=== PATIENT | male | born 1960 | race Caucasian/White ===

== ENCOUNTER 2018-10-23 10:07 | Day surgery (SDC) | payer OTHER ==
[2018-10-20 12:50] VITALS: BMI 26.2
[2018-10-23 10:39] VITALS: TEMP 98.1
[2018-10-23] MEDS ORDERED: MIDAZOLAM HCL 2 MG/2 ML SINGLE DOSE VIAL ONE ×2 (11:39)
[2018-10-23] MEDS ORDERED: DEXAMETHASONE SOD PHOSPHATE 4 MG/1 ML VIAL ONE (12:02)
--- NOTE | 2018-10-23 12:39 | OP ---
Operative Note - Note: Operative Date: 10/23/18 Pre-Operative Diagnosis: Right renal stone Operation: Right ESWL Findings: 20 mm Right renal pelvis area Post-Operative Diagnosis: Same as Pre-op Surgeon: Guzman Elkins Anesthesia: Fractional Estimated Blood Loss (mls): 0 Operative Report Dictated: Yes
--- NOTE | 2018-10-23 12:52 | OP ---
Operative Note - Note: Operative Date: 10/23/18 Pre-Operative Diagnosis: Right renal stone Operation: Right ESWL Findings: 20 mm Right renal pelvic stone Post-Operative Diagnosis: Same as Pre-op Surgeon: Guzman Elkins Anesthesia: Fractional Estimated Blood Loss (mls): 0 Operative Report Dictated: Yes
[2018-10-23 13:30] VITALS: BP 122/75; PULSE 75
--- NOTE | 2018-10-24 07:43 | OP ---
DATE OF OPERATION: 10/23/2018 PREOPERATIVE DIAGNOSIS: Right renal stone. POSTOPERATIVE DIAGNOSIS: Right renal stone. PROCEDURE: Right extracorporeal shock wave lithotripsy. ATTENDING: Tania Valiente MD ANESTHESIA: Fractional. OPERATION FOLLOWS: The patient was brought in the operating room, placed in supine position on the operating room table. Ultrasonography and fluoroscopy were performed. A 2-cm stone was noted in the right renal pelvis. Patient understood all risks and benefits involved with lithotripsy with a stone of this size and was aware of the risk of having a stone obstruction. Patient understood these risks and benefits and underwent the procedure. Once the stone was identified, anesthesia and preoperative antibiotics were administered. Shock wave lithotripsy was then performed, 3000 impulses at 20 joules of power were administered to the stone with excellent fragmentation noted under real time ultrasonography and fluoroscopy. No complications were noted. The disposition of the patient was to the recovery room. TANIA VALIENTE M.D. [id number]
== END 2018-10-23 14:12 | disposition home or self-care (01) ==
LOC: JASU-SURG 10:07
PROVIDERS: ATTEND Urology
PROC: 0TF3XZZ Fragmentation in Right Kidney Pelvis, External Approach (ICD-10-PCS; principal; 2018-10-23 11:00)
DX: N20.0 Calculus of kidney (principal)

== ENCOUNTER 2018-10-27 13:34 | Inpatient (IN) | payer OTHER ==
[2018-10-27] MEDS ORDERED: KETOROLAC TROMETHAMINE 30 MG/1 ML VIAL IVPUSH ONE (13:44)
--- NOTE | 2018-10-27 13:46 | PDOC ---
Rapid Medical Evaluation Time Seen by Provider: 10/27/18 13:41 Medical Evaluation: Allergies Allergy/AdvReac Type Severity Reaction Status Date / Time No Known Allergies Allergy Verified 10/20/18 12:50 10/27/18 13:42 I have performed a brief in-person evaluation of this patient. The patient presents with a chief complaint of: s/p lithotripsy 4 days ago, has new known obstructive stone Pertinent physical exam findings: R CVAT I have ordered the following:CT scan labs, urine toradol, valle The patient will proceed to the ED for further evaluation. 10/27/18 13:45 Discharge Disposition - Diagnosis Flank pain - Referrals - Patient Instructions - Post Discharge Activity
[2018-10-27 13:47] VITALS: BMI 26.2
[2018-10-27 14:24] LABS: BASO % 0.8 % (0-2.0); EOS % 2.1 % (0-4.5); HEMATOCRIT 41.6 % (35.4-49); HEMOGLOBIN 14.5 GM/dL (11.7-16.9); LYMPH % 23.7 % (8-40); MCHC 34.8 g/dl (32.0-35.9); MEAN CELL VOLUME 86.3 fl (80-96); MEAN PLT VOLUME 7.9 fl (7.5-11.1); MONO % 6.5 % (3.8-10.2); NEUT % 66.9 % (42.8-82.8); PLATELET COUNT 299 K/MM3 (134-434); RBC 4.82 M/mm3 (4.00-5.60); RDW 13.4 % (11.9-15.9); WHITE BLOOD COUNT 11.9 K/mm3 (4.0-10.0)
[2018-10-27] MEDS ORDERED: KETOROLAC TROMETHAMINE 30 MG/1 ML VIAL ONE (14:40)
[2018-10-27 14:57] LABS: ALK PHOS 96 U/L (45-117); ANION GAP 6 MMOL/L (8-16); BILIRUBIN,TOTAL 0.4 mg/dL (0.2-1); BLOOD UREA NITROGEN 16 mg/dL (7-18); CALCIUM 9.3 mg/dL (8.5-10.1); CHLORIDE 102 mmol/L (98-107); CO2 25 mmol/L (21-32); CREATININE 1.9 mg/dL (0.55-1.3); GLUCOSE,RANDOM 97 mg/dL (74-106); POTASSIUM 4.2 mmol/L (3.5-5.1); SGOT/AST 12 U/L (15-37); SGPT/ALT 16 U/L (13-61); SODIUM 132 mmol/L (136-145); TOT PROT 7.8 g/dl (6.4-8.2)
[2018-10-27] MEDS ORDERED: SODIUM CHLORIDE 1,000 ML IV STA (15:41)
--- NOTE | 2018-10-27 16:11 | PDOC ---
History of Present Illness - General Chief Complaint: Pain Stated Complaint: FEVER AFTER PROCEDURE Time Seen by Provider: 10/27/18 13:41 History Source: Patient - History of Present Illness Timing/Duration: reports: constant, getting worse Pain Radiation: reports: flank Past History - Past Medical History Allergies/Adverse Reactions: Allergies Allergy/AdvReac Type Severity Reaction Status Date / Time No Known Allergies Allergy Verified 10/20/18 12:50 Home Medications: Ambulatory Orders Acetaminophen [Tylenol -] 500 mg PO Q6H PRN 10/20/18 Anemia: No Asthma: No Cancer: No Cardiac Disorders: No CVA: No COPD: No CHF: No Dementia: No Diabetes: No GI Disorders: No Disorders: No HTN: No Hypercholesterolemia: No Liver Disease: No Seizures: No Thyroid Disease: No - Surgical History Appendectomy: Yes - Suicide/Smoking/Psychosocial Hx Smoking History: Current every day smoker Number of Cigarettes Smoked Daily: 10 Information on smoking cessation initiated: No 'Breaking Loose' booklet given: 10/23/18 Hx Alcohol Use: No Drug/Substance Use Hx: No Substance Use Type: None Review of Systems - Review of Systems Constitutional: No: Chills, Fever ABD/GI: No: Nausea, Vomiting : Yes: Flank Pain. No: Hematuria *Physical Exam - Vital Signs Last Vital Signs Temp Pulse Resp BP Pulse Ox 98.1 F 107 H 20 116/87 100 10/27/18 13:43 10/27/18 13:43 10/27/18 13:43 10/27/18 13:43 10/27/18 13:43 - Physical Exam General Appearance: Yes: Appropriately Dressed, Mild Distress HEENT: positive: Normal Voice Neck: positive: Supple Respiratory/Chest: negative: Respiratory Distress Gastrointestinal/Abdominal: positive: Soft. negative: Tender Musculoskeletal: positive: CVA Tenderness (R) Integumentary: positive: Dry, Warm Neurologic: positive: Fully Oriented, Alert, Normal Mood/Affect Moderate Sedation - Procedure Monitoring Vital Signs: Procedure Monitoring Vital Signs Temperature 98.1 F 10/27/18 13:43 Pulse Rate 107 H 10/27/18 13:43 Respiratory Rate 20 10/27/18 13:43 Blood Pressure 116/87 10/27/18 13:43 O2 Sat by Pulse Oximetry (%) 100 10/27/18 13:43 ED Treatment Course - LABORATORY CBC & Chemistry Diagram: 10/27/18 14:07 10/27/18 14:06 - ADDITIONAL ORDERS Additional order review: Laboratory Results 10/27/18 14:06 Sodium 132 L Potassium 4.2 Chloride 102 Carbon Dioxide 25 Anion Gap 6 L BUN 16 Creatinine 1.9 H Creat Clearance w eGFR 36.85 Random Glucose 97 Calcium 9.3 Total Bilirubin 0.4 AST 12 L ALT 16 Alkaline Phosphatase 96 Total Protein 7.8 Albumin 4.0 10/27/18 14:07 RBC 4.82 MCV 86.3 MCHC 34.8 RDW 13.4 MPV 7.9 Neutrophils % 66.9 Lymphocytes % 23.7 Monocytes % 6.5 Eosinophils % 2.1 Basophils % 0.8 - Medications Given in the ED: ED Medications Discontinued Medications Generic Name Dose Route Start Last Admin Trade Name Freq PRN Reason Stop Dose Admin Ketorolac Tromethamine 30 mg 10/27/18 13:44 10/27/18 14:43 Toradol Injection - IVPUSH 10/27/18 13:45 30 mg ONCE ONE Administration Medical Decision Making - Medical Decision Making 10/27/18 15:46 68-year-old male, history of kidney stones, s/p R ESWL on 10/23/2018 who presented to his urologist with continued right flank pain and had CT done today showed multiple R ureteral stone with moderate hydronephrosis. Patient was sent to ED for admission for stent placement as per discussion with Dr. Bhaskar Espinosa via phone. Patient denies any nausea, vomiting, fever or chills at this time See exam Sent in for stent placement 2/2 R renal stone/hydro -pain control -preop labs -CT done earlier -OR today -admit 10/27/18 17:21 *DC/Admit/Observation/Transfer Diagnosis at time of Disposition: Flank pain - Discharge Dispostion Condition at time of disposition: Stable Decision to Admit order: Yes - Referrals Referrals: Jorge Abdalla MD [Primary Care Provider] - - Patient Instructions - Post Discharge Activity
[2018-10-27] MEDS ORDERED: MORPHINE SULFATE 2 MG/ML VIAL IM PRN (17:28)
[2018-10-27] MEDS ORDERED: SODIUM CHLORIDE 1,000 ML IV SCH (17:30)
--- NOTE | 2018-10-27 17:36 | HP ---
CHIEF COMPLAINT: sent by urologist for stent placement PCP:dr Abdalla HISTORY OF PRESENT ILLNESS: 8-year-old male, history of kidney stones, s/p R lithotrypsy on 10/23/[address] Gonsales with continued right flank pain and had CT done today showed multiple R ureteral stone with moderate hydronephrosis. Patient was sent to Er for admission for stent placement . Patient denies any nausea, vomiting, fever or chills at this time ER course was notable for: (1)h/o lithorypsy (2)h/o stones (3)h/o hydro on ct abd and pelvix Recent Travel:non PAST MEDICAL HISTORY:renal stones PAST SURGICAL HISTORY:renal stones removal Social History: Smoking:occasional Alcohol:none Drugs: none Family History: Allergies No Known Allergies Allergy (Verified 10/20/18 12:50) HOME MEDICATIONS: Home Medications Medication Instructions Recorded Acetaminophen [Tylenol -] 500 mg PO Q6H PRN 10/20/18 REVIEW OF SYSTEMS CONSTITUTIONAL: Absent: fever, chills, diaphoresis, generalized weakness, malaise, loss of appetite, weight change HEENT: Absent: rhinorrhea, nasal congestion, throat pain, throat swelling, difficulty swallowing, mouth swelling, ear pain, eye pain, visual changes CARDIOVASCULAR: Absent: chest pain, syncope, palpitations, irregular heart rate, lightheadedness , peripheral edema RESPIRATORY: Absent: cough, shortness of breath, dyspnea with exertion, orthopnea, wheezing, stridor, hemoptysis GASTROINTESTINAL: Absent: abdominal pain, abdominal distension, nausea, vomiting, diarrhea, constipation, melena, hematochezia GENITOURINARY: Absent: dysuria, frequency, urgency, hesitancy, hematuria, flank pain, genital pain MUSCULOSKELETAL: Absent: myalgia, arthralgia, joint swelling, back pain, neck pain SKIN: Absent: rash, itching, pallor HEMATOLOGIC/IMMUNOLOGIC: Absent: easy bleeding, easy bruising, lymphadenopathy, frequent infections ENDOCRINE: Absent: unexplained weight gain, unexplained weight loss, heat intolerance, cold intolerance NEUROLOGIC: Absent: headache, focal weakness or paresthesias, dizziness, unsteady gait, seizure, mental status changes, bladder or bowel incontinence PSYCHIATRIC: Absent: anxiety, depression, suicidal or homicidal ideation, hallucinations. PHYSICAL EXAMINATION Vital Signs - 24 hr 10/27/18 13:43 Temperature 98.1 F Pulse Rate 107 H Respiratory 20 Rate Blood Pressure 116/87 O2 Sat by Pulse 100 Oximetry (%) GENERAL: Awake, alert, and fully oriented, in no acute distress. HEAD: Normal with no signs of trauma. EYES: Pupils equal, round and reactive to light, extraocular movements intact, sclera anicteric, conjunctiva clear. No lid lag. EARS, NOSE, THROAT: Ears normal, nares patent, oropharynx clear without exudates. Moist mucous membranes. NECK: Normal range of motion, supple without lymphadenopathy, JVD, or masses. LUNGS: Breath sounds equal, clear to auscultation bilaterally. No wheezes, and no crackles. No accessory muscle use. HEART: Regular rate and rhythm, normal S1 and S2 without murmur, rub or gallop. ABDOMEN: Soft, nontender, not distended, normoactive bowel sounds, no guarding, no rebound, no masses. No hepatomegaly or splenomegaly. MUSCULOSKELETAL: Normal range of motion at all joints. No bony deformities or tenderness. No CVA tenderness. UPPER EXTREMITIES: 2+ pulses, warm, well-perfused. No cyanosis. No clubbing. No peripheral edema. LOWER EXTREMITIES: 2+ pulses, warm, well-perfused. No calf tenderness. No peripheral edema. NEUROLOGICAL: Cranial nerves II-XII intact. Normal speech. Normal gait. PSYCHIATRIC: Cooperative. Good eye contact. Appropriate mood and affect. SKIN: Warm, dry, normal turgor, no rashes or lesions noted, normal capillary refill. Laboratory Results - last 24 hr 10/27/18 10/27/18 14:06 14:07 WBC 11.9 H RBC 4.82 Hgb 14.5 Hct 41.6 MCV 86.3 MCH 30.0 MCHC 34.8 RDW 13.4 Plt Count 299 MPV 7.9 Absolute Neuts (auto) 7.9 Neutrophils % 66.9 Lymphocytes % 23.7 Monocytes % 6.5 Eosinophils % 2.1 Basophils % 0.8 Nucleated RBC % 0 Sodium 132 L Potassium 4.2 Chloride 102 Carbon Dioxide 25 Anion Gap 6 L BUN 16 Creatinine 1.9 H Creat Clearance w eGFR 36.85 Random Glucose 97 Calcium 9.3 Total Bilirubin 0.4 AST 12 L ALT 16 Alkaline Phosphatase 96 Total Protein 7.8 Albumin 4.0 ASSESSMENT/PLAN: 8-year-old male, history of kidney stones, s/p R ESWL on 10/23/2018 who presented to his urologist with continued right flank pain and had CT done today showed multiple R ureteral stone with moderate hydronephrosis. Patient is admission for stent placement will make him npo start him on iv normal saline as per discussion of er pa with urologist that patient doenst need the antibiotics stent placement pain medications as needed for pain due renal stones no need for dvt prophylaxis bc he is ambulatory. Visit type - Emergency Visit Emergency Visit: Yes Care time: The patient presented to the Emergency Department on the above date and was hospitalized for further evaluation of their emergent condition. - New Patient This patient is new to me today: Yes Date on this admission: 10/27/18 - Critical Care Critical Care patient: No
[2018-10-27 18:40] LABS: URINE APPEARANCE TURBID; URINE BILIRUBIN NEGATIVE (<2.0 mg/dL); URINE COLOR AMBER; URINE GLUCOSE (UA) NEGATIVE (NEGATIVE); URINE KETONE NEGATIVE (NEGATIVE); URINE LEUK ESTERASE 1+ (NEGATIVE); URINE NITRITE NEGATIVE (NEGATIVE); URINE PROTEIN 3+ (NEGATIVE); URINE UROBILINOGEN NEGATIVE mg/dL (0.2-1.0)
[2018-10-27 18:46] LABS: EPI CELLS RARE /HPF (FEW); URINE BACTERIA RARE /hpf (NONE SEEN); URINE MUCUS FEW; YEAST FEW
[2018-10-27 18:50] LABS: INR 1.05 (0.83-1.09); PROTHROMBIN TIME (PATIENT) 12.4 SEC (9.7-13.0)
[2018-10-27] MEDS ORDERED: PROPOFOL 20 ML ONE ×2 (19:03→19:11)
--- NOTE | 2018-10-27 19:06 | CON.GU ---
Consult Consult Specialty:: urology Referred by:: Ricky Reason for Consultation:: right renal colic/hydronephrosis/gross hematuria - History of Present Illness Chief Complaint: right ureteral obstruction History of Present Illness: Patient is a 58 year old male s/p eswl of right 2 cm renal pelvic stone. Patient developed nausea, vomiting and chills. Patient was placed on oral antibiotics yesterday and the pain and nausea worsened with new onset gross hematuria. Patient is in distress - History Source History Provided By: Patient Limitations to Obtaining History: No Limitations - Alcohol/Substance Use Hx Alcohol Use: No - Smoking History Smoking history: Current every day smoker Aproximately how many cigarettes per day: 10 Home Medications - Allergies Allergies/Adverse Reactions: Allergies Allergy/AdvReac Type Severity Reaction Status Date / Time No Known Allergies Allergy Verified 10/20/18 12:50 - Home Medications Home Medications: Ambulatory Orders Acetaminophen [Tylenol -] 500 mg PO Q6H PRN 10/20/18 Physical Exam- Vital Signs: Vital Signs Temperature 98.1 F 10/27/18 13:43 Pulse Rate 95 H 10/27/18 18:30 Respiratory Rate 18 10/27/18 18:30 Blood Pressure 110/79 10/27/18 18:30 O2 Sat by Pulse Oximetry (%) 99 10/27/18 18:30 Constitutional: Yes: Anxious, Moderate Distress Eyes: Yes: WNL, Conjunctiva Clear, EOM Intact HENT: Yes: WNL, Atraumatic, Normocephalic Neck: Yes: WNL, Supple, Trachea Midline Cardiovascular: Yes: WNL, Regular Rate and Rhythm Respiratory: Yes: WNL, Regular, CTA Bilaterally Gastrointestinal: Yes: Hypoactive Bowel Sounds Renal/: Yes: CVA Tenderness - Right Kidneys: Yes: FLank Pain Right Pelvis: Yes: Bladder Non Palpable Testicles: Yes: WNL Scrotum: Yes: WNL Penis: Yes: WNL Prostate Exam: Yes: Asymmetrical Extremities: Yes: WNL Integumentary: Yes: WNL Labs: CBC, BMP 10/27/18 14:07 10/27/18 14:06 Imaging - Results Cat Scan: Report Reviewed Assessment/Plan imp uti acute renal insufficiency gross hematuria right hydronephrosis with multiple right ureteral stones plan patient taken to OR with uti/acute renal injury secondary to high grade ureteral obstruction
[2018-10-27] MEDS ORDERED: DEXAMETHASONE SOD PHOSPHATE 4 MG/1 ML VIAL ONE (19:28)
--- NOTE | 2018-10-27 20:06 | OP ---
Operative Note - Note: Operative Date: 10/27/18 Pre-Operative Diagnosis: acute renal injury/right hydronephrosis with renal and ureteral stones/gross hematuria/renal colic Operation: cystoscopy/right retrograde pyelogram/right ureteroscopic laser lithotripsy/right ureteral stone basketing/right ureteral stent placement Findings: multiple stones obstructing right ureter with hyronephrosis Post-Operative Diagnosis: Same as Pre-op Surgeon: Guzman Elkins Anesthesia: General Specimens Removed: ureteral stones Drains & Tubes with Location: 02/21 right ureteral stent
[2018-10-27] MEDS ORDERED: ONDANSETRON 4 MG/2 ML VIAL IVPUSH PRN (20:27)
[2018-10-27] MEDS ORDERED: ACETAMINOPHEN 325 MG TABLET (FP) PO PRN (20:27)
[2018-10-27] MEDS: LACTATED RINGERS SOLUTION 1,000 ML IV SCH (21:53)
[2018-10-28] MEDS: oxyCODONE HCL 5 MG TABLET PO PRN ×2 (06:35→21:59)
[2018-10-28 08:52] LABS: BASO % 0.1 % (0-2.0); EOS % 0.1 % (0-4.5); HEMATOCRIT 35.3 % (35.4-49); HEMOGLOBIN 12.3 GM/dL (11.7-16.9); LYMPH % 15.7 % (8-40); MCH 29.8 pg (25.7-33.7); MCHC 34.9 g/dl (32.0-35.9); MEAN CELL VOLUME 85.2 fl (80-96); MEAN PLT VOLUME 7.9 fl (7.5-11.1); MONO % 3.8 % (3.8-10.2); NEUT % 80.3 % (42.8-82.8); PLATELET COUNT 260 K/MM3 (134-434); RBC 4.15 M/mm3 (4.00-5.60); RDW 13.5 % (11.9-15.9); WHITE BLOOD COUNT 8.3 K/mm3 (4.0-10.0)
--- NOTE | 2018-10-28 09:07 | PN ---
Progress Note, Physician Chief Complaint: AWAKE ALERT EVENTS REVIEWED - Current Medication List Current Medications: Active Medications Acetaminophen (Tylenol -) 650 mg PO Q4H PRN PRN Reason: Pain-PACU ORDER X 2 DOSES ONLY Last Admin: 10/28/18 06:35 Dose: 650 mg Fentanyl (Sublimaze Injection -) 50 mcg IVPUSH [id number] PRN PRN Reason: PAIN-PACU ORDER X 4 DOSES ONLY Last Admin: 10/27/18 20:40 Dose: 50 mcg Lactated Ringer's (Lactated Ringers Solution) 1,000 mls @ 75 mls/hr IV ASDIR [facility] Last Admin: 10/27/18 21:53 Dose: Not Given Levofloxacin (Levaquin -) 500 mg PO DAILY@0600 [facility] Stop: 10/29/18 06:01 Last Admin: 10/28/18 06:34 Dose: 500 mg Morphine Sulfate (Morphine Injection -) 4 mg IVPUSH Q6H PRN PRN Reason: PAIN LEVEL 7 - 10 Ondansetron HCl (Zofran Injection) 4 mg IVPUSH Q6H PRN PRN Reason: NAUSEA AND/OR VOMITING Oxycodone HCl (Roxicodone -) 5 mg PO Q4H PRN PRN Reason: PAIN LEVEL 1-5 Last Admin: 10/28/18 06:35 Dose: 5 mg - Objective Vital Signs: Vital Signs Temperature 97.7 F 10/28/18 08:03 Pulse Rate 82 10/28/18 08:03 Respiratory Rate 20 10/28/18 08:03 Blood Pressure 126/70 10/28/18 08:03 O2 Sat by Pulse Oximetry (%) 96 10/27/18 21:10 Constitutional: Yes: Moderate Distress Eyes: Yes: WNL HENT: Yes: WNL Neck: Yes: WNL Cardiovascular: Yes: Regular Rate and Rhythm Respiratory: Yes: WNL Gastrointestinal: Yes: Tenderness Genitourinary: Yes: Other Musculoskeletal: Yes: Muscle Weakness Edema: No Peripheral Pulses WNL: Yes Integumentary: Yes: WNL Wound/Incision: Yes: Clean/Dry Neurological: Yes: WNL ...Motor Strength: WNL Psychiatric: Yes: WNL Labs: CBC, BMP 10/28/18 07:00 INR, PTT INR 1.05 (0.83-1.09) 10/27/18 18:19 Problem List - Problems (1) Renal colic, bilateral Code(s): N23 - UNSPECIFIED RENAL COLIC (2) Hematuria Code(s): R31.9 - HEMATURIA, UNSPECIFIED (3) UTI (urinary tract infection) Code(s): N39.0 - URINARY TRACT INFECTION, SITE NOT SPECIFIED (4) Flank pain Code(s): R10.9 - UNSPECIFIED ABDOMINAL PAIN Assessment/Plan IVF IV ABX CONSULT PAIN CONTROL MONITOR RENAL FUNCTION
[2018-10-28] MEDS: LACTATED RINGERS SOLUTION 1,000 ML IV SCH ×2 (09:32→21:59)
[2018-10-28 09:42] LABS: ANION GAP 7 MMOL/L (8-16); BLOOD UREA NITROGEN 18 mg/dL (7-18); CALCIUM 8.9 mg/dL (8.5-10.1); CHLORIDE 104 mmol/L (98-107); CO2 24 mmol/L (21-32); CREATININE 1.6 mg/dL (0.55-1.3); GLUCOSE,RANDOM 114 mg/dL (74-106); POTASSIUM 4.8 mmol/L (3.5-5.1); SODIUM 136 mmol/L (136-145)
--- NOTE | 2018-10-28 09:46 | OP ---
DATE OF OPERATION: 10/27/2018 PREOPERATIVE DIAGNOSIS: Acute renal injury with right hydronephrosis secondary to renal and ureteral stones with severe renal colic. POSTOPERATIVE DIAGNOSIS: Acute renal injury with right hydronephrosis secondary to renal and ureteral stones with severe renal colic. PROCEDURE: Cystoscopy, right retrograde pyelogram, right ureteroscopic laser lithotripsy, right ureteral stone basketing, and right ureteral stent placed. SURGEON: Tania Valiente MD ANESTHESIA: General. DESCRIPTION OF PROCEDURE: The patient is status post a right extracorporeal shock-wave lithotripsy of a 2-cm+ right renal pelvis stone. The patient presented with acute renal insufficiency indicative of acute kidney injury. In addition, the patient has a high-grade hydronephrosis with multiple stones obstructing the right kidney. The patient is in severe colic and in distress. The patient was taken emergently to the operating room to have a stent placed. It must be also noted that the patient has a nitrite-positive urine. The patient was brought in the operating room and placed in a supine position on the operating room table. Anesthesia was administered as well as Levaquin preoperatively. The patient was then placed in a dorsal lithotomy position and prepped and draped in a usual sterile manner. Cystoscopy is performed. No evidence of stones or neoplasm noted within the bladder. At this point, a retrograde pyelogram showed a large stone burden within the right ureter. At this point, a wire was passed proximally into the kidney. Ureteroscopy was performed, and multiple stones are noted. A Holmium laser is utilized, and laser lithotripsy of the larger stones are performed throughout the course of the ureter. High-grade hydroureteronephrosis was noted. There were also blood clots within the ureter and the kidney. The patient then had a significant amount of stones basketed and sent for pathologic evaluation. Once there was no significant stone burden noted within the ureter, it was decided to leave a 6-Tajik 26-cm stent. This was placed utilizing the Seldinger technique. No complications were noted. The patient tolerated the procedure very well. DISPOSITION: Patient to recovery room. TANIA VALIENTE M.D. [id number]
[2018-10-28] MEDS: morphine SULFATE 4 MG/ML VIAL IVPUSH PRN ×2 (11:03→18:04)
[2018-10-29] MEDS: oxyCODONE HCL 5 MG TABLET PO PRN ×4 (06:13→23:17)
[2018-10-29] MEDS ORDERED: MAGNESIUM HYDROX 2400MG/30ML ORAL SUSPENSION 30 ML CUP PO PRN (09:52)
[2018-10-29] MEDS: SENNOSIDES 8.6MG TABLET (FP) PO SCH ×2 (10:21→21:54)
--- NOTE | 2018-10-29 17:37 | PN ---
Progress Note, Physician Chief Complaint: AWAKE ALERT STILL HAVING HEMATUREA AND PAIN - Current Medication List Current Medications: Active Medications Acetaminophen (Tylenol -) 650 mg PO Q4H PRN PRN Reason: Pain-PACU ORDER X 2 DOSES ONLY Last Admin: 10/28/18 06:35 Dose: 650 mg Fentanyl (Sublimaze Injection -) 50 mcg IVPUSH [id number] PRN PRN Reason: PAIN-PACU ORDER X 4 DOSES ONLY Last Admin: 10/27/18 20:40 Dose: 50 mcg Magnesium Hydroxide (Milk Of Magnesia -) 30 ml PO Q8H PRN PRN Reason: INDIGESTION Last Admin: 10/29/18 10:21 Dose: 30 ml Ondansetron HCl (Zofran Injection) 4 mg IVPUSH Q6H PRN PRN Reason: NAUSEA AND/OR VOMITING Oxycodone HCl (Roxicodone -) 5 mg PO Q4H PRN PRN Reason: PAIN LEVEL 1-5 Last Admin: 10/29/18 13:21 Dose: 5 mg Senna (Senna -) 1 tab PO BID DOMINIC Last Admin: 10/29/18 10:21 Dose: 1 tab - Objective Vital Signs: Vital Signs Temperature 97.8 F 10/29/18 14:53 Pulse Rate 72 10/29/18 14:53 Respiratory Rate 18 10/29/18 14:53 Blood Pressure 120/64 10/29/18 14:53 O2 Sat by Pulse Oximetry (%) 96 10/29/18 09:00 Constitutional: Yes: Mild Distress Gastrointestinal: Yes: WNL Genitourinary: Yes: Hematuria Musculoskeletal: Yes: Back Pain Labs: CBC, BMP 10/28/18 07:00 10/28/18 07:00 INR, PTT INR 1.05 (0.83-1.09) 10/27/18 18:19 Problem List - Problems (1) Renal colic, bilateral Code(s): N23 - UNSPECIFIED RENAL COLIC (2) Hematuria Code(s): R31.9 - HEMATURIA, UNSPECIFIED (3) UTI (urinary tract infection) Code(s): N39.0 - URINARY TRACT INFECTION, SITE NOT SPECIFIED (4) Flank pain Code(s): R10.9 - UNSPECIFIED ABDOMINAL PAIN Assessment/Plan IVF IV ABX CONSULT PAIN CONTROL MONITOR RENAL FUNCTION CHECK BUN/CREAT IN AM DC PLANNING
[2018-10-30] MEDS: oxyCODONE HCL 5 MG TABLET PO PRN ×2 (06:17→12:34)
[2018-10-30 07:35] LABS: HEMATOCRIT 34.2 % (35.4-49); HEMOGLOBIN 11.7 GM/dL (11.7-16.9); MCHC 34.4 g/dl (32.0-35.9); MEAN CELL VOLUME 87.1 fl (80-96); MEAN PLT VOLUME 7.9 fl (7.5-11.1); PLATELET COUNT 249 K/MM3 (134-434); RBC 3.92 M/mm3 (4.00-5.60); RDW 13.6 % (11.9-15.9); WHITE BLOOD COUNT 8.8 K/mm3 (4.0-10.0)
[2018-10-30 07:52] LABS: ANION GAP 6 MMOL/L (8-16); BLOOD UREA NITROGEN 17 mg/dL (7-18); CALCIUM 8.4 mg/dL (8.5-10.1); CHLORIDE 103 mmol/L (98-107); CO2 29 mmol/L (21-32); CREATININE 1.4 mg/dL (0.55-1.3); GLUCOSE,RANDOM 76 mg/dL (74-106); POTASSIUM 4.3 mmol/L (3.5-5.1); SODIUM 137 mmol/L (136-145)
[2018-10-30] MEDS: SENNOSIDES 8.6MG TABLET (FP) PO SCH ×2 (09:44→09:45)
[2018-10-30 12:40] VITALS: PULSE 77
[2018-10-30 15:41] VITALS: BP 126/70; TEMP 97.9
--- NOTE | 2018-10-30 15:53 | DS ---
Physical Examination Vital Signs: Vital Signs Temperature 97.9 F 10/30/18 15:38 Pulse Rate 77 10/30/18 15:38 Respiratory Rate 18 10/30/18 15:38 Blood Pressure 126/70 10/30/18 15:38 O2 Sat by Pulse Oximetry (%) 96 10/29/18 19:55 Findings/Remarks: Patient is a 58 y/o male with past medical history of kidney stones, s/p R lithotripsy 10/23/18. Patient presented to Dr. Birmingham with complaints of continuous R flank pain. CT scan performed and showed multiple R ureteral stone with moderate hydronephrosis. On 10/27/18 patient underwent cystoscopy with R retrograde pyelogram, R ureteroscopic laser lithotripsy, right ureteral stone basketing and R ureteral stent placed. Since stent placement patient has said been is subsiding and no hematuria noted. Constitutional: Yes: Well Nourished, No Distress, Calm Eyes: Yes: Conjunctiva Clear HENT: Yes: Atraumatic Cardiovascular: Yes: Regular Rate and Rhythm Respiratory: Yes: Regular, CTA Bilaterally Gastrointestinal: Yes: Normal Bowel Sounds, Soft, Other (non tender) Musculoskeletal: Yes: WNL Extremities: Yes: WNL Edema: No Neurological: Yes: Alert, Oriented Psychiatric: Yes: Alert, Oriented Labs: CBC, BMP 10/30/18 06:00 10/30/18 06:00 Discharge Summary Reason For Visit: HYDRONEPHROSIS/FLANK PAIN Current Active Problems Flank pain (Acute) Hematuria (Acute) Renal colic, bilateral (Acute) UTI (urinary tract infection) (Acute) Procedures: Principal: Cystoscopy. Ureteral stent placement Condition: Stable - Instructions Diet, Activity, Other Instructions: Follow up with pmd follow up with urology Dr. Birmingham in 1 week continue with medication regimen return to ER if severe pain, hematuria Referrals: Guzman Birmingham MD [Staff Physician] - Jorge Abdalla MD [Primary Care Provider] - Disposition: HOME - Home Medications Comprehensive Discharge Medication List: Ambulatory Orders Acetaminophen [Tylenol -] 500 mg PO Q6H PRN 10/20/18 levoFLOXacin [Levaquin -] 500 mg PO DAILY #7 tablet 10/27/18
--- NOTE | 2018-10-31 10:01 | PATH ---
Surgical Pathology Report Patient Name: CYNDEE SUTTON Med. Rec. #: [id number] /Age/Gender: 1960 (Age: 58) / M Account: [id number] Location: [facility] MED/SURG Taken: 10/30/2018 Received: 10/30/2018 Reported: 10/31/2018 Physicians: Guzman Elkins Specimen(s) Received URETERAL STONE, RIGHT Clinical History Right ureteral stone Final Diagnosis URETERAL STONE, RIGHT, LASER LITHOTRIPSY: URETEROLITHIASIS. MACROSCOPIC DIAGNOSIS. Electronically Signed Barbara Fontana M.D. Gross Description Received in saline labeled "right ureteral stone," is a 2.0 x 1.3 x 0.4 cm aggregate of sanchez, irregular to fragmented calculi. The specimen is sent for chemical analysis. /10/30/2018 saudi/10/30/2018
--- NOTE | 2018-10-31 14:00 | EKG ---
Test Reason : Blood Pressure : / mmHG Vent. Rate : 081 BPM Atrial Rate : 081 BPM P-R Int : 172 ms QRS Dur : 096 ms QT Int : 372 ms P-R-T Axes : 043 054 071 degrees QTc Int : 432 ms NORMAL SINUS RHYTHM INCOMPLETE RIGHT BUNDLE BRANCH BLOCK BORDERLINE ECG NO PREVIOUS ECGS AVAILABLE Confirmed by MD Austin, Mark ([id number]) on 10/31/2018 1:59:19 PM Referred By: Confirmed By:Mark Avila MD
[2018-11-06 10:14] LABS: CA OXALATE MONOHYDR. 10 % (.); WEIGHT 227.7 mg (.)
== END 2018-10-30 17:02 | disposition home or self-care (01) | DRG 446 ==
LOC: JER 13:34 → JERBED 16:38 → J8W 21:34
PROVIDERS: ADMIT Family Medicine; ATTEND Family Medicine
PROC: 0TC68ZZ Extirpation of Matter from Right Ureter, Via Natural or Artificial Opening Endoscopic (ICD-10-PCS; principal; 2018-10-27 18:00)
PROC: 0T768DZ Dilation of Right Ureter with Intraluminal Device, Via Natural or Artificial Opening Endoscopic (ICD-10-PCS; 2018-10-27 18:00)
PROC: BT1DZZZ Fluoroscopy of Right Kidney, Ureter and Bladder (ICD-10-PCS; 2018-10-27 18:00)
DX: N13.2 Hydronephrosis with renal and ureteral calculous obstruction (principal); N39.0 Urinary tract infection, site not specified; N17.9 Acute kidney failure, unspecified; R31.0 Gross hematuria; F17.210 Nicotine dependence, cigarettes, uncomplicated
CPT/HCPCS: 36415; 74176-TC; 80048; 80053; 81003; 81015; 82360; 85025; 85027; 85610; 86850; 86900; 86901; 87086; 88300-TC; 93005; 93010; 94010; 94760; 99282-25; J7030

== ENCOUNTER 2018-11-06 09:17 | Day surgery (SDC) | payer OTHER ==
[2018-11-03 12:12] VITALS: BMI 26.2
[2018-11-06] MEDS ORDERED: MIDAZOLAM HCL 2 MG/2 ML SINGLE DOSE VIAL ONE ×2 (10:50)
--- NOTE | 2018-11-06 11:22 | OP ---
Operative Note - Note: Operative Date: 11/06/18 Pre-Operative Diagnosis: Left renal stone Operation: Left ESWL Findings: 8 mm mid pole left renal stone Post-Operative Diagnosis: Same as Pre-op Surgeon: Guzman Elkins Anesthesia: Fractional Estimated Blood Loss (mls): 0 Operative Report Dictated: Yes
[2018-11-06 12:16] VITALS: BP 109/76; PULSE 87; TEMP 97.7
--- NOTE | 2018-11-07 11:17 | OP ---
DATE OF OPERATION: 11/06/2018 PREOPERATIVE DIAGNOSIS: Left renal stone. POSTOPERATIVE DIAGNOSIS: Left renal stone. PROCEDURE: Left extracorporeal shock wave lithotripsy. ANESTHESIA: Fractional. ATTENDING: Tania Valiente MD OPERATION FOLLOWS: The patient was brought in the operating room, placed in supine position on the operating room table. Ultrasonography and fluoroscopy were performed. An 8-mm left mid-pole stone was identified. At this point, anesthesia and preoperative antibiotics were administered. Shock wave lithotripsy was then performed. Excellent fragmentation was noted under real time ultrasonography and fluoroscopy. No complications were noted. The disposition of the patient was to the recovery room. TANIA VALIENTE M.D. [id number]
== END 2018-11-06 12:45 | disposition home or self-care (01) ==
LOC: JASU-SURG 09:17
PROVIDERS: ATTEND Urology
PROC: 0TF4XZZ Fragmentation in Left Kidney Pelvis, External Approach (ICD-10-PCS; principal; 2018-11-06 10:15)
DX: N20.0 Calculus of kidney (principal)